=== PATIENT | female | born 1960 | race Caucasian/White ===

== ENCOUNTER 2018-07-15 22:24 | Inpatient (IN) | payer MEDICAID, MEDICARE ==
[~2018-07-15] VITALS: Ht 165.1 cm; Wt 83.0 kg
[2018-07-15 23:29] LABS: Basophils # (auto) 0 uL; Eosinophils # (auto) 0 uL; Hematocrit 46.4 % (36.0-46.0); Hemoglobin 15.1 g/dL (12.2-16.2); Lymphocytes # (auto) 1.2 uL; Mean Corpuscular Hemoglobin 30.9 pg (28.0-32.0); Mean Corpuscular Hgb Conc. 32.6 g/dL (32.0-36.0); Mean Corpuscular Volume 94.6 fL (80.0-100.0); Monocytes # (auto) 0.7 uL; Monocytes % (auto) 4.5 % (0.0-12.0); Neutrophils # (auto) 13.4 uL; Neutrophils % (auto) 87.5 % (37.0-80.0); Platelet Count (auto) 274 10^3/uL (140-450); Red Cell Distribution Width 13.9 % (11.8-14.3); White Blood Cell 15.4 10^3/uL (4.4-10.8)
[2018-07-15 23:50] LABS: Alanine Aminotransferase 76 U/L (13-56); Albumin 4.2 g/dL (3.4-5.0); Anion Gap 15 (5-15); Aspartate Aminotransferase 69 U/L (15-37); BUN/Creatinine Ratio 15.8; Blood Alcohol < 3.0 mg/dL (0-5); Blood Urea Nitrogen 21 mg/dL (7-18); Carbon Dioxide 17 mmol/L (21-32); Chloride 108 mmol/L (98-107); GFR African American 53 mL/min; GFR Non-African American 43 mL/min; Glucose 135 mg/dL (74-106); Potassium 3.2 mmol/L (3.5-5.1); Sodium 140 mmol/L (136-145)
[2018-07-15 23:55] LABS: Alkaline Phosphatase 121 U/L (45-117); Bilirubin, Total 0.5 mg/dL (0.2-1.0); Lactic Acid w/Reflex 2.4 mmol/L (0.4-2.0); Total Protein 7.9 g/dL (6.4-8.2)
[2018-07-15 23:56] LABS: Hepatitis B Surface Antibody Negative
[2018-07-15 23:58] LABS: Urine Bacteria NONE SEEN /hpf (None Seen); Urine Blood Negative /uL (Negative); Urine Mucus FEW (None Seen); Urine Specific Gravity 1.022 (1.001-1.035); Urine WBC <1 /hpf (0 - 5)
[2018-07-16 00:08] LABS: Alcohol, Urine < 3.0 mg/dL (0-5); Amphetamine Screen, Urine NEGATIVE (NEGATIVE); Barbiturate Scree,Urine NEGATIVE (NEGATIVE); Benzodiazephine Screen, Urine POSITIVE (NEGATIVE); Cannabinoid Screen, Urine POSITIVE (NEGATIVE); Cocaine Screen, Urine NEGATIVE (NEGATIVE); Opiate Scree,Urine NEGATIVE (NEGATIVE); Phencyclidine Screen, Urine NEGATIVE (NEGATIVE)
[2018-07-16 00:08] LABS: Hepatitis B Surface Antigen Negative (Negative)
[2018-07-16] MEDS ORDERED: CARI-316 PO (01:10)
[2018-07-16] MEDS ORDERED: THIAMINE INJ 100 MG, MULTIPLE VITAMIN 10 ML, FOLIC ACID 1 MG, MAGNESIUM SULF SDV 50% 8 ... IV ONE ×5 (01:54)
[2018-07-16] MEDS ORDERED: HYDR2TAB58 PO (02:39)
[2018-07-16] MEDS ORDERED: MET50T PO (02:39)
[2018-07-16] MEDS ORDERED: HYDR-4683 PO ×2 (02:47→08:07)
[2018-07-16] MEDS ORDERED: ESZO3TAB53 PO ×2 (02:47→08:07)
[2018-07-16] MEDS ORDERED: PHE100C PO ×2 (02:47→08:07)
[2018-07-16] MEDS ORDERED: GABA-339 PO ×2 (02:47→08:07)
[2018-07-16] MEDS ORDERED: ALPR1TAB PO (02:47)
[2018-07-16] MEDS ORDERED: OXYC325T14 PO (02:47)
[2018-07-16] MEDS ORDERED: CLON1TAB4 PO (02:47)
[2018-07-16] MEDS ORDERED: NITROGLYCERIN 0.4 MG SL TAB SL PRN (05:30)
[2018-07-16] MEDS ORDERED: ONDANSETRON HCL 4 MG/2 ML VIAL IV PRN (05:30)
[2018-07-16] MEDS ORDERED: MORPHINE SULF INJ 2 MG/ML SYRINGE 1ML IV PRN (05:30)
[2018-07-16] MEDS ORDERED: POTASSIUM CHL 20MEQ/100ML 100 ML IV ONE (06:00)
[2018-07-16] MEDS ORDERED: SODIUM CHLORIDE 0.9% 500 ML IV ONE (06:00)
[2018-07-16] MEDS ORDERED: CLINDAMYCIN 600MG IV 50 ML IV SCH (06:30)
[2018-07-16] MEDS ORDERED: ALPR1TAB2 PO (08:07)
[2018-07-16] MEDS ORDERED: METO-158 PO (08:07)
[2018-07-16 09:00] VITALS: BP 120/77
[2018-07-16] MEDS ORDERED: cefTRIAXone 1GM/10ml IVPUSH 10 ML IV SCH (09:00)
[2018-07-16] MEDS: SODIUM CHLORIDE 0.9% 1,000 ML IV SCH ×2 (09:00→11:11)
[2018-07-16] MEDS: FAMOTIDINE 20 MG TAB PO SCH ×2 (09:45→22:00)
[2018-07-16 12:00] VITALS: BP 129/84
[2018-07-16] MEDS ORDERED: THIAMINE INJ 100 MG, MULTIPLE VITAMIN 10 ML, FOLIC ACID 1 MG, MAGNESIUM SULF SDV 50% 8 ... IV SCH ×5 (12:00)
[2018-07-16] MEDS ORDERED: HYDROcodone-ACET 5/325MG TAB PO PRN ×2 (13:00)
[2018-07-16] MEDS: PIPERACILLIN-TAZOB 3.375GM 100 ML IV SCH ×2 (13:08→17:36)
[2018-07-16 14:54] LABS: Albumin 3.6 g/dL (3.4-5.0); BUN/Creatinine Ratio 19.2; Calcium 8.2 mg/dL (8.5-10.1); Potassium 3.8 mmol/L (3.5-5.1)
[2018-07-16 14:56] LABS: Acetaminophen 6.1 ug/mL (10-30)
[2018-07-16 14:57] LABS: Bilirubin, Total 0.4 mg/dL (0.2-1.0); Total Protein 7.4 g/dL (6.4-8.2)
[2018-07-16] MEDS: PHENYTOIN SODIUM 100 MG CAP PO SCH ×2 (15:10→22:17)
[2018-07-16 17:00] VITALS: BP 118/75
[2018-07-16] MEDS: HYDROcodone-ACET 10/325MG TAB PO PRN (17:15)
[2018-07-16] MEDS ORDERED: GABAPENTIN 300 MG CAP PO SCH (22:00)
[2018-07-16] MEDS: GABAPENTIN 300 MG CAP PO SCH (22:17)
[2018-07-17] MEDS: HYDROcodone-ACET 10/325MG TAB PO PRN ×3 (00:51→18:52)
[2018-07-17] MEDS: SODIUM CHLORIDE 0.9% 1,000 ML IV SCH (02:30)
[2018-07-17 04:36] VITALS: BP 107/72
[2018-07-17 06:07] LABS: Basophils # (auto) 0 uL; Basophils % (auto) 0.2 % (0.0-2.0); Eosinophils # (auto) 0 uL; Eosinophils % (auto) 0.2 % (0.0-7.0); Hematocrit 37.2 % (36.0-46.0); Hemoglobin 12.6 g/dL (12.2-16.2); Lymphocytes % (auto) 34.1 % (10.0-50.0); Mean Corpuscular Hemoglobin 31.2 pg (28.0-32.0); Mean Corpuscular Hgb Conc. 33.9 g/dL (32.0-36.0); Monocytes # (auto) 0.3 uL; Neutrophils # (auto) 3.4 uL; Neutrophils % (auto) 59.5 % (37.0-80.0); Nucleated Red Blood Cells % 0.1 %; Platelet Count (auto) 198 10^3/uL (140-450); Red Blood Cells 4.05 10^6/uL (4.0-5.20); Red Cell Distribution Width 13.7 % (11.8-14.3); White Blood Cell 5.7 10^3/uL (4.4-10.8)
[2018-07-17 06:34] LABS: Albumin 3.1 g/dL (3.4-5.0); BUN/Creatinine Ratio 14.9; Calcium 7.9 mg/dL (8.5-10.1); Potassium 3.4 mmol/L (3.5-5.1)
[2018-07-17 06:37] LABS: Bilirubin, Total 0.3 mg/dL (0.2-1.0); Total Protein 6.5 g/dL (6.4-8.2)
[2018-07-17] MEDS: PHENYTOIN SODIUM 100 MG CAP PO SCH ×3 (06:42→21:44)
[2018-07-17] MEDS: PIPERACILLIN-TAZOB 3.375GM 100 ML IV SCH ×4 (06:42→21:20)
[2018-07-17] MEDS: GABAPENTIN 300 MG CAP PO SCH ×3 (06:42→21:45)
[2018-07-17] MEDS ORDERED: POTASSIUM CHL 20 Meq TABLET PO ONE (09:15)
[2018-07-17 09:40] VITALS: BP 128/90
[2018-07-17 09:41] LABS: Basophils # (auto) 0 uL; Basophils % (auto) 0.3 % (0.0-2.0); Eosinophils # (auto) 0 uL; Eosinophils % (auto) 0.1 % (0.0-7.0); Hematocrit 36.7 % (36.0-46.0); Hemoglobin 12.5 g/dL (12.2-16.2); Lymphocytes # (auto) 1.6 uL; Lymphocytes % (auto) 29.3 % (10.0-50.0); Mean Corpuscular Hemoglobin 31.6 pg (28.0-32.0); Mean Corpuscular Hgb Conc. 34.2 g/dL (32.0-36.0); Mean Corpuscular Volume 92.5 fL (80.0-100.0); Monocytes # (auto) 0.4 uL; Monocytes % (auto) 6.6 % (0.0-12.0); Neutrophils # (auto) 3.6 uL; Neutrophils % (auto) 63.7 % (37.0-80.0); Nucleated Red Blood Cells % 0.1 %; Platelet Count (auto) 193 10^3/uL (140-450); Red Blood Cells 3.97 10^6/uL (4.0-5.20); Red Cell Distribution Width 13.5 % (11.8-14.3); White Blood Cell 5.6 10^3/uL (4.4-10.8)
[2018-07-17] MEDS ORDERED: VANCOMYCIN PER PHARMACY 0 MG IV SCH (09:45)
[2018-07-17] MEDS: FAMOTIDINE 20 MG TAB PO SCH ×2 (09:59→21:44)
[2018-07-17] MEDS: ALPRAZolam 0.5 MG TAB PO PRN ×2 (10:24→21:44)
[2018-07-17] MEDS: VANCOMYCIN 1GM/250ML 250 ML IV SCH ×2 (11:26→23:12)
[2018-07-17 13:00] VITALS: BP 120/86
[2018-07-17] MEDS ORDERED: PIPERACILLIN-TAZOB 3.375GM 100 ML IV ONE (16:15)
[2018-07-17 17:21] VITALS: BP 140/90
[2018-07-17 22:00] VITALS: BP 112/63
[2018-07-18] MEDS: PIPERACILLIN-TAZOB 3.375GM 100 ML IV SCH ×4 (02:58→21:40)
[2018-07-18] MEDS: HYDROcodone-ACET 10/325MG TAB PO PRN ×3 (04:52→21:42)
[2018-07-18 05:00] VITALS: BP 142/60
[2018-07-18 05:43] LABS: Basophils # (auto) 0 uL; Basophils % (auto) 0.4 % (0.0-2.0); Eosinophils # (auto) 0 uL; Eosinophils % (auto) 0.1 % (0.0-7.0); Hematocrit 37.3 % (36.0-46.0); Hemoglobin 12.4 g/dL (12.2-16.2); Lymphocytes # (auto) 1.6 uL; Lymphocytes % (auto) 33.9 % (10.0-50.0); Mean Corpuscular Hgb Conc. 33.4 g/dL (32.0-36.0); Monocytes # (auto) 0.3 uL; Monocytes % (auto) 7.2 % (0.0-12.0); Neutrophils # (auto) 2.8 uL; Neutrophils % (auto) 58.4 % (37.0-80.0); Nucleated Red Blood Cells % 0.1 %; Platelet Count (auto) 187 10^3/uL (140-450); Red Blood Cells 4.01 10^6/uL (4.0-5.20); Red Cell Distribution Width 13.9 % (11.8-14.3); White Blood Cell 4.7 10^3/uL (4.4-10.8)
[2018-07-18] MEDS: PHENYTOIN SODIUM 100 MG CAP PO SCH ×3 (05:56→21:40)
[2018-07-18] MEDS: GABAPENTIN 300 MG CAP PO SCH ×3 (05:56→21:42)
[2018-07-18 06:09] LABS: Albumin 3.3 g/dL (3.4-5.0); BUN/Creatinine Ratio 6.8; Bilirubin, Total 0.5 mg/dL (0.2-1.0); Calcium 8.3 mg/dL (8.5-10.1); Potassium 3.5 mmol/L (3.5-5.1); Total Protein 6.7 g/dL (6.4-8.2)
[2018-07-18] MEDS: ALPRAZolam 0.5 MG TAB PO PRN ×2 (08:13→17:34)
[2018-07-18 09:00] VITALS: BP 135/76
[2018-07-18] MEDS: VANCOMYCIN 1GM/250ML 250 ML IV SCH (10:41)
[2018-07-18] MEDS: FAMOTIDINE 20 MG TAB PO SCH ×2 (10:41→21:42)
[2018-07-18 12:00] VITALS: BP 132/93
[2018-07-18] MEDS ORDERED: METOPROLOL TARTRATE 50 MG TAB PO ONE (14:15)
[2018-07-18 16:00] VITALS: BP 133/96
[2018-07-18 20:14] VITALS: BP 138/85
[2018-07-18] MEDS: SODIUM CHLORIDE 0.9% 1,000 ML IV SCH ×3 (21:40→21:58)
[2018-07-18] MEDS: METOPROLOL TARTRATE 50 MG TAB PO SCH (21:41)
[2018-07-19] MEDS: VANCOMYCIN 1GM/250ML 250 ML IV SCH (00:08)
[2018-07-19] MEDS: PIPERACILLIN-TAZOB 3.375GM 100 ML IV SCH ×2 (02:42→09:41)
[2018-07-19] MEDS: SODIUM CHLORIDE 0.9% 1,000 ML IV SCH (04:28)
[2018-07-19 04:35] VITALS: BP 128/85
[2018-07-19 05:20] LABS: Basophils # (auto) 0 uL; Basophils % (auto) 0.4 % (0.0-2.0); Eosinophils # (auto) 0 uL; Eosinophils % (auto) 0.1 % (0.0-7.0); Hematocrit 38.2 % (36.0-46.0); Hemoglobin 12.9 g/dL (12.2-16.2); Lymphocytes # (auto) 2.2 uL; Mean Corpuscular Hgb Conc. 33.7 g/dL (32.0-36.0); Monocytes # (auto) 0.4 uL; Neutrophils # (auto) 2.8 uL; Neutrophils % (auto) 51.5 % (37.0-80.0); Nucleated Red Blood Cells % 0.1 %; Platelet Count (auto) 207 10^3/uL (140-450); Red Blood Cells 4.15 10^6/uL (4.0-5.20); Red Cell Distribution Width 13.6 % (11.8-14.3); White Blood Cell 5.5 10^3/uL (4.4-10.8)
[2018-07-19 05:46] LABS: BUN/Creatinine Ratio 9.5; Calcium 8.7 mg/dL (8.5-10.1); Potassium 3.5 mmol/L (3.5-5.1)
[2018-07-19] MEDS: GABAPENTIN 300 MG CAP PO SCH ×3 (05:51→22:50)
[2018-07-19] MEDS: PHENYTOIN SODIUM 100 MG CAP PO SCH ×3 (05:51→22:49)
[2018-07-19] MEDS: HYDROcodone-ACET 10/325MG TAB PO PRN ×3 (05:51→18:21)
[2018-07-19] MEDS: ALPRAZolam 0.5 MG TAB PO PRN ×2 (05:52→22:50)
[2018-07-19 09:00] VITALS: BP 146/102
[2018-07-19] MEDS: FAMOTIDINE 20 MG TAB PO SCH ×2 (09:40→22:50)
[2018-07-19] MEDS: METOPROLOL TARTRATE 50 MG TAB PO SCH ×2 (09:41→22:50)
[2018-07-19] MEDS ORDERED: VANCOMYCIN 1,250 MG in D5W 5% 250 ML IV SCH (10:00)
[2018-07-19] MEDS: AMOXICILLIN/CLAVUL 875 MG TAB PO SCH ×2 (12:42→22:49)
[2018-07-19 13:00] VITALS: BP 137/106
[2018-07-19 22:00] VITALS: BP 135/89
[2018-07-20] MEDS: HYDROcodone-ACET 10/325MG TAB PO PRN ×2 (00:01→06:40)
[2018-07-20 04:50] VITALS: BP 123/85
[2018-07-20] MEDS: PHENYTOIN SODIUM 100 MG CAP PO SCH (06:39)
[2018-07-20] MEDS: ALPRAZolam 0.5 MG TAB PO PRN (06:40)
[2018-07-20] MEDS: GABAPENTIN 300 MG CAP PO SCH (06:40)
[2018-07-20 09:03] VITALS: BP 131/95
[2018-07-20 09:04] LABS: BUN/Creatinine Ratio 10.2; Calcium 9.4 mg/dL (8.5-10.1); Potassium 4.2 mmol/L (3.5-5.1)
[2018-07-20 09:08] LABS: Basophils # (auto) 0 uL; Basophils % (auto) 0.5 % (0.0-2.0); Eosinophils # (auto) 0 uL; Eosinophils % (auto) 0.1 % (0.0-7.0); Hematocrit 39.7 % (36.0-46.0); Hemoglobin 13.3 g/dL (12.2-16.2); Lymphocytes # (auto) 1.3 uL; Lymphocytes % (auto) 21.8 % (10.0-50.0); Mean Corpuscular Hemoglobin 30.5 pg (28.0-32.0); Mean Corpuscular Hgb Conc. 33.4 g/dL (32.0-36.0); Mean Corpuscular Volume 91.2 fL (80.0-100.0); Monocytes # (auto) 0.5 uL; Monocytes % (auto) 8.4 % (0.0-12.0); Neutrophils % (auto) 69.2 % (37.0-80.0); Platelet Count (auto) 237 10^3/uL (140-450); Red Blood Cells 4.35 10^6/uL (4.0-5.20); Red Cell Distribution Width 13.5 % (11.8-14.3); White Blood Cell 5.8 10^3/uL (4.4-10.8)
[2018-07-20] MEDS: FAMOTIDINE 20 MG TAB PO SCH (10:00)
[2018-07-20] MEDS: AMOXICILLIN/CLAVUL 875 MG TAB PO SCH (10:21)
[2018-07-20] MEDS: METOPROLOL TARTRATE 50 MG TAB PO SCH (10:22)
[2018-07-20 11:21] VITALS: BP 131/95
[2018-07-20 13:00] VITALS: BP 133/98
== END 2018-07-20 13:50 | disposition home health service (06) | DRG 871 ==
LOC: EDBD 22:24 → ER 22:30 → TELE 22:31 → DOU IN ICU 07-16 08:25 → TELE-CENTR 07-16 14:46
PROVIDERS: ADMIT Nurse Practitioner; ATTEND Internal Medicine
DX: A41.9 Sepsis, unspecified organism (principal); G92 Toxic encephalopathy; N17.0 Acute kidney failure with tubular necrosis; J69.0 Pneumonitis due to inhalation of food and vomit; E44.1 Mild protein-calorie malnutrition; E27.40 Unspecified adrenocortical insufficiency; S31.83 Open wound of anus; T50.901A Poisoning by unspecified drugs, medicaments and biological substances, accidental (unintentional), initial encounter; E86.0 Dehydration; S31.819A Unspecified open wound of right buttock, initial encounter; E87.6 Hypokalemia; F32.9 Major depressive disorder, single episode, unspecified; F19.10 Other psychoactive substance abuse, uncomplicated; X58.XXXA Exposure to other specified factors, initial encounter; I10 Essential (primary) hypertension; Z86.14 Personal history of Methicillin resistant Staphylococcus aureus infection; Z91.5 Personal history of self-harm; Y93.89 Activity, other specified; Y92.89 Other specified places as the place of occurrence of the external cause; Y99.8 Other external cause status; W54.0XXA Bitten by dog, initial encounter; Z88.8 Allergy status to other drugs, medicaments and biological substances; Z79.899 Other long term (current) drug therapy
CPT/HCPCS: 36415; 36600; 51702; 70450; 71045; 80048; 80053; 80185; 80202; 80307; 80320; 80329; 81001; 82550; 82805; 83605; 84484; 85025; 86703; 86706; 86803; 87040; 87076; 87081; 87186; 87205; 87340; 94761; 96361; 96365; 96366; 96367; 96375; A6257; J0696; J2543; J3480; J3490; J7060

== ENCOUNTER 2023-10-30 03:20 | Inpatient (IN) | payer MEDICARE ==
[~2023-10-30] VITALS: Ht 165.1 cm; Wt 86.2 kg
[~2023-10-30 03:20] MED LIST: ALPR1TAB PO; CARI350T27 PO; CLON-853 PO; ESZO3TAB54 PO; GABA-339 PO; HYDR-4833 PO; HYDR2TAB58 PO; MET50T PO; METO-158 PO; OXYC325T14 PO; PHEN1CAP60 PO
[2023-10-30 03:22] VITALS: PULSE 157; RESP 31; O2SAT 90
[2023-10-30] MEDS ORDERED: ETOMIDATE (2MG/ML) 20ML VIAL IV ONE ×2 (03:23→06:15)
[2023-10-30] MEDS ORDERED: ROCURONIUM 10MG/ML 10ML VIAL IV ONE ×3 (03:24→06:15)
[2023-10-30] MEDS ORDERED: MIDAZOLAM DRIP 50 mg/50mL 50 ML IV ONE (03:33)
[2023-10-30 03:45] VITALS: BP 118/69; PULSE 159; RESP 18; O2SAT 99
[2023-10-30] MEDS ORDERED: MIDAZOLAM DRIP 50 mg/50mL 50 ML IV SCH (03:45)
[2023-10-30] MEDS ORDERED: SODIUM CHLORIDE 0.9% 250 ML IV ONE (04:15)
[2023-10-30] MEDS ORDERED: PIPERACILLIN-TAZOB 3.375GM 100 ML IV ONE ×2 (04:15→05:15)
[2023-10-30 04:24] LABS: Base Excess -18.6 mmol/L (-2.0-2.0)
[2023-10-30] MEDS ORDERED: NOREPINEPHRINE 8 MG/250ML KIT 250 ML IV ONE (04:41)
[2023-10-30] MEDS ORDERED: NOREPINEPHRINE 8 MG/250ML KIT 250 ML IV SCH (04:45)
[2023-10-30 04:53] LABS: Hemoglobin 16.5 g/dL (12.2-16.2); Mean Corpuscular Hemoglobin 29.3 pg (28.0-32.0); Mean Corpuscular Hgb Conc. 31.8 g/dL (32.0-36.0); Mean Corpuscular Volume 92.2 fL (80.0-100.0); Red Blood Cells 5.64 10^6/uL (4.0-5.20); Red Cell Distribution Width 14.8 % (11.8-14.3); White Blood Cell 24.7 10^3/uL (4.4-10.8)
[2023-10-30 05:07] LABS: Alanine Aminotransferase 56 U/L (7-40); Albumin 4.9 g/dL (3.2-4.8); Alkaline Phosphatase 153 U/L (46-116); Anion Gap 24 (5-15); Aspartate Aminotransferase 261 U/L (13-40); BUN/Creatinine Ratio 13.1 (10.0-20.0); Bilirubin, Total 0.4 mg/dL (0.2-1.0); Blood Alcohol < 3.0 mg/dL (<10); Blood Urea Nitrogen 18 mg/dL (9-23); Calcium 9.7 mg/dL (8.7-10.4); Carbon Dioxide 12 mmol/L (20-30); Chloride 105 mmol/L (98-107); Glucose 371 mg/dL (74-106); Magnesium 2.7 mg/dL (1.6-2.6); Potassium 2.9 mmol/L (3.5-5.1); Sodium 141 mmol/L (136-145); Total Protein 8.2 g/dL (5.7-8.2)
[2023-10-30 05:14] LABS: Band Neutrophils % (manual) 0; Basophils % (manual) 0 (0.0-2.0); Eosinophils % (manual) 0 (0-7); Metamyelocytes % 0
[2023-10-30 05:15] LABS: Blast Cells 0; Promyelocytes % 0; Reactive Lymphocytes 0
[2023-10-30 05:16] LABS: Lactic Acid w/Reflex 11.1 mmol/L (0.4-2.0)
[2023-10-30 05:26] LABS: INR 1.12 (0.9-1.15); Partial Thromboplastin Time 29.7 SEC (24.5-34.5); Prothrombin Time 11.7 sec (9.3-11.8)
[2023-10-30] MEDS ORDERED: VASOPRESSIN 20 UNITS in SODIUM CHL 0.9% 99 ML IV SCH (05:30)
[2023-10-30] MEDS ORDERED: SODIUM CHLORIDE 0.9% 2,600 ML IV ONE (05:30)
[2023-10-30] MEDS ORDERED: PHENYLEPHRINE IV 250 ML IV ONE (05:50)
[2023-10-30] MEDS ORDERED: SODIUM BICARBONATE 8.4 % INJ 50ML VIAL IV ONE ×2 (05:55→06:00)
[2023-10-30] MEDS ORDERED: VANCOMYCIN 1GM/250ML 250 ML IV ONE ×2 (05:55→06:00)
[2023-10-30] MEDS ORDERED: PHENYLEPHRINE IV 250 ML IV SCH (06:00)
[2023-10-30 06:06] VITALS: BP 84/58; PULSE 125; RESP 34; O2SAT 95
[2023-10-30 06:27] LABS: Base Excess -8.6 mmol/L (-2.0-2.0)
[2023-10-30 06:38] LABS: COVID19 ANTIGEN SOFIA FIA NEGATIVE (NEGATIVE); Rapid Influenza A Negative (Negative); Rapid Influenza B Negative (Negative)
[2023-10-30] MEDS: POTASSIUM CHL 20MEQ/100ML 100 ML IV SCH ×2 (07:16→08:56)
[2023-10-30] MEDS ORDERED: IOHEXOL 350 MG/ML 100ML IJ ONE (07:59)
[2023-10-30 08:03] VITALS: BP 110/54; PULSE 116; RESP 30; O2SAT 96
[2023-10-30 08:10] VITALS: PULSE 116; RESP 31; O2SAT 90
[2023-10-30 08:41] LABS: Lymphocytes % (manual) 16 (10.0-50.0); Monocytes % (manual) 2 (0-12); Myelocytes % 1; Platelet Estimate Adequate
[2023-10-30 09:00] VITALS: BP 129/62; PULSE 115; RESP 32; TEMP 97.3; O2SAT 92
[2023-10-30] MEDS ORDERED: ONDANSETRON HCL 4 MG/2 ML VIAL IV PRN (09:30)
[2023-10-30] MEDS ORDERED: DEXTROSE (50%) 50ML SYRG IV PRN (09:30)
[2023-10-30] MEDS ORDERED: SODIUM CHLORIDE 0.9% 1,000 ML IV SCH (09:30)
[2023-10-30] MEDS ORDERED: VANCOMYCIN PER PHARMACY 0 MG IV SCH (09:30)
[2023-10-30] MEDS ORDERED: PANTOPRAZOLE 40 MG/10 ML VIAL INJ IV SCH (10:00)
[2023-10-30] MEDS ORDERED: EPINEPHrine HCL 1 MG/10 ML SYRG ONE (10:54)
[2023-10-30 11:04] LABS: Lactic Acid w/Reflex 10.4 mmol/L (0.4-2.0)
[2023-10-30 11:08] LABS: Hepatitis B Surface Antigen Negative (Negative)
[2023-10-30 11:28] LABS: Hepatitis A Ab IgM Negative
[2023-10-30 11:29] LABS: Hepatitis B Core IgM Negative; Hepatitis C Antibody Negative (Negative)
[2023-10-30] MEDS ORDERED: InsuLIN REG 1unit/0.01ml Soln (100units/ml) SC SCH (12:00)
[2023-10-30] MEDS ORDERED: ACCU-CHEK COMFORT CURVE STRIP VI SCH (12:00)
[2023-10-30] MEDS ORDERED: PHENYTOIN SODIUM 50 MG/ML 2ML VIAL IV SCH (14:00)
[2023-10-30] MEDS ORDERED: CEFEPIME 2GM/50ML NS 50 ML IV SCH (14:00)
[2023-10-30] MEDS ORDERED: SODIUM BICARBONATE 8.4% INJ 50ML SYRINGE IV ONE (16:20)
[2023-10-30] MEDS ORDERED: EPINEPHrine HCL 1 MG/10 ML SYRG IV ONE (16:20)
[2023-10-31] MEDS ORDERED: VANCOMYCIN 1GM/250ML 250 ML IV SCH
== END 2023-10-30 12:47 | DRG 871 ==
LOC: ER 03:20 → EDBD 03:20 → TELE 09:30
PROVIDERS: ADMIT Nurse Practitioner Family; ATTEND Nurse Practitioner Family
PROC: 06HM33Z Insertion of Infusion Device into Right Femoral Vein, Percutaneous Approach (ICD-10-PCS; principal; 2023-10-30)
PROC: 4A043B0 Measurement of Venous Pressure, Central, Percutaneous Approach (ICD-10-PCS; 2023-10-30)
PROC: 5A12012 Performance of Cardiac Output, Single, Manual (ICD-10-PCS; 2023-10-30)
PROC: 5A1935Z Respiratory Ventilation, Less than 24 Consecutive Hours (ICD-10-PCS; 2023-10-30)
PROC: 0BH17EZ Insertion of Endotracheal Airway into Trachea, Via Natural or Artificial Opening (ICD-10-PCS; 2023-10-30)
DX: A41.9 Sepsis, unspecified organism (principal); E11.10 Type 2 diabetes mellitus with ketoacidosis without coma; G93.41 Metabolic encephalopathy; J15.9 Unspecified bacterial pneumonia; R65.21 Severe sepsis with septic shock; N17.9 Acute kidney failure, unspecified; E78.5 Hyperlipidemia, unspecified; E87.6 Hypokalemia; F17.200 Nicotine dependence, unspecified, uncomplicated; F32.A Depression, unspecified; R56.9 Unspecified convulsions; Z66 Do not resuscitate; F41.9 Anxiety disorder, unspecified; R06.03 Acute respiratory distress; R74.01 Elevation of levels of liver transaminase levels; Z20.822 Contact with and (suspected) exposure to COVID-19; T15.91XA Foreign body on external eye, part unspecified, right eye, initial encounter; W44.9XXA Unspecified foreign body entering into or through a natural orifice, initial encounter; Y93.89 Activity, other specified; Y92.89 Other specified places as the place of occurrence of the external cause; Y99.8 Other external cause status; Z82.49 Family history of ischemic heart disease and other diseases of the circulatory system; Z88.8 Allergy status to other drugs, medicaments and biological substances; Z90.710 Acquired absence of both cervix and uterus; Z63.4 Disappearance and death of family member
CPT/HCPCS: 31500; 36415; 36556; 36600; 70450; 71045; 71275; 80053; 80074; 80185; 80320; 82010; 82805; 83036; 83605; 83735; 83880; 84484; 85007; 85027; 85379; 85610; 85730; 87040; 87070; 87077; 87186; 87205; 87426; 87804; 93005; 93970; 94002; 99152; 99153; 99291; G0378; J2250; J2543; J3480